=== PATIENT | female | born 1965 ===

== ENCOUNTER 2018-06-28 08:37 | Day surgery (SDC) | payer OTHER ==
[2018-06-28 09:57] VITALS: BMI 24.7
[2018-06-28] MEDS ORDERED: Lactated Ringer's 500 ML IV ONE (10:00)
[2018-06-28] MEDS ORDERED: Propofol 10 mg/ml Inj (20 ML) ONE (10:39)
[2018-06-28 11:46] VITALS: O2SAT 99
[2018-06-28 11:47] VITALS: BP 118/63; PULSE 76; RESP 15; TEMP 97
== END 2018-06-28 12:48 | disposition home or self-care (01) ==
LOC: H.ENDO 08:37
PROVIDERS: ATTEND Internal Medicine Gastroenterology
DX: Z12.11 Encounter for screening for malignant neoplasm of colon (principal); K64.8 Other hemorrhoids
CPT/HCPCS: 45378; J2001; J2704; J7120